=== PATIENT | female | born 1970 | race Caucasian/White ===

== ENCOUNTER 2023-06-26 08:33 | Day surgery (SDC) | payer BC ==
[2023-06-22 16:50] VITALS: BMI 26.6
[2023-06-22 17:26] LABS: Hemoglobin 10.6 g/dL (12.0-15.5); Mean Corpuscular HGB CONC 30.3 g/dL (32.0-36.0); Mean Corpuscular Volume 76.1 fl (81.6-98.3); Mean Platelet Volume 10.5 fl (7.4-10.4); Platelet Count 349 10x3/uL (150-450); RBC Distribution Width 17.7 % (11.5-14.5); White Blood Cell (WBC) Count 6.2 10x3/uL (3.5-10.5)
[2023-06-26] MEDS ORDERED: CeleCOXIB 100 MG CAP ONE (08:47)
[2023-06-26] MEDS ORDERED: Gabapentin 300 MG CAP ONE (08:47)
[2023-06-26] MEDS ORDERED: Famotidine/PF 20 mg/2ml Vial ONE (08:48)
[2023-06-26] MEDS ORDERED: Scopolamine 1 mg/72 hour Patch ONE (09:46)
[2023-06-26] MEDS ORDERED: Midazolam HCl 2 mg/2 ml Vial ONE ×2 (10:04→10:17)
[2023-06-26] MEDS ORDERED: Dexamethasone 4 mg/ml Vial ONE (10:16)
[2023-06-26] MEDS ORDERED: Lidocaine 2% PF 5 ML VIAL ONE (10:16)
[2023-06-26] MEDS ORDERED: Rocuronium Bromide 10 MG/ML (10ML VIAL) ONE (10:16)
[2023-06-26] MEDS ORDERED: Ondansetron PF 4 MG/2 ML Vial ONE (10:16)
[2023-06-26] MEDS ORDERED: PROPOFOL 20 ML ONE (10:17)
[2023-06-26] MEDS ORDERED: Bupivacaine PF 0.5% 30 ML VIAL ONE (10:18)
[2023-06-26] MEDS ORDERED: EPINEPHrine 1 MG/ML VIAL ONE (10:18)
[2023-06-26] MEDS ORDERED: Fentanyl 250 MCG/5 ML VIAL ONE (10:20)
[2023-06-26] MEDS ORDERED: CEFAZOLIN 2 GM VIAL ONE (10:26)
[2023-06-26] MEDS ORDERED: SUGAMMADEX SODIUM 200 MG/2 ML VIAL ONE ×2 (10:29→11:44)
[2023-06-26] MEDS ORDERED: Meperidine HCl/PF 25 MG/ML VIAL ONE (12:12)
[2023-06-26] MEDS ORDERED: Estradiol 0.05mg/24 Hour Patch (Weekly) ONE (12:59)
[2023-06-26] MEDS ORDERED: HYDROcodone/Acetaminophen 5/325 mg Tablet ONE (13:11)
== END 2023-06-26 14:45 | disposition home or self-care (01) ==
LOC: CSHSDC 08:33
PROVIDERS: ATTEND Obstetrics & Gynecology
PROC: 0UT24ZZ Resection of Bilateral Ovaries, Percutaneous Endoscopic Approach (ICD-10-PCS; principal; 2023-06-26)
PROC: 0UT74ZZ Resection of Bilateral Fallopian Tubes, Percutaneous Endoscopic Approach (ICD-10-PCS; principal; 2023-06-26)
PROC: 0UT94ZZ Resection of Uterus, Percutaneous Endoscopic Approach (ICD-10-PCS; principal; 2023-06-26)
DX: D25.9 Leiomyoma of uterus, unspecified (principal); N92.0 Excessive and frequent menstruation with regular cycle; N83.202 Unspecified ovarian cyst, left side; F41.9 Anxiety disorder, unspecified; D50.9 Iron deficiency anemia, unspecified; N72 Inflammatory disease of cervix uteri; N87.9 Dysplasia of cervix uteri, unspecified; N88.8 Other specified noninflammatory disorders of cervix uteri; Z79.899 Other long term (current) drug therapy; Z88.0 Allergy status to penicillin; Z91.018 Allergy to other foods; Z91.013 Allergy to seafood
CPT/HCPCS: 84702; 85027; 86850; 86900; 86901; 88307; J0171; J1100; J2001; J2175; J2250; J2405; J2704; J3010; S0020; S0028

== ENCOUNTER 2024-01-04 15:07 | Outpatient (CLI) | payer BC | END 2024-01-04 15:08 | disposition home or self-care (01) | LOC: CSHMAMMO 15:07 | PROVIDERS: ATTEND Family Medicine | DX: Z12.31 Encounter for screening mammogram for malignant neoplasm of breast (principal); Z80.3 Family history of malignant neoplasm of breast | CPT/HCPCS: 77063; 77067 ==